=== PATIENT | male | born 1940 | race African-American/Black ===

== ENCOUNTER 2021-04-05 15:40 | Inpatient (IN) | payer OTHER, SELFPAY ==
[~2021-04-05] VITALS: Ht 175.3 cm; Wt 69.9 kg
[2021-04-05 15:45] VITALS: BP_SYST 147
[2021-04-05] MEDS ORDERED: NACL 0.9% 1,000 ML IV ONE (17:15)
[2021-04-05 17:22] LABS: HEMATOCRIT 29.3 % (36-54); HEMOGLOBIN 9.5 g/dL (14.0-18.0); MEAN CORPUSCULAR HEMOGLOBIN 28 pg (27-31); MEAN CORPUSCULAR HGB CONC 33 % (32-36); MEAN CORPUSCULAR VOLUME 86 fL (79.0-98.0); PLATELET COUNT (AUTO) 173 K/uL (130-430); RED BLOOD CELL COUNT(AUTO) 3.42 MIL/uL (4.2-6.2); RED CELL DISTRIBUTION WIDTH 17.3 % (9.0-15.0); WHITE BLOOD COUNT (AUTO) 3.9 K/uL (4.8-10.8)
[2021-04-05 17:28] LABS: ANION GAP 6 (5-15); CALCIUM 7.8 mg/dL (8.4-11.0); CHLORIDE 104 mmol/L (98-107); CREATININE 1.52 mg/dL (0.55-1.30); GLUCOSE 132 mg/dL (70-99); POTASSIUM 4.5 mmol/L (3.5-5.1); SODIUM SERUM 140 mmol/L (136-145); UREA NITROGEN, BLOOD 32 mg/dL (8-21)
[2021-04-05 17:36] LABS: ALANINE AMINOTRANSFERASE 117 U/L (12-78); ALBUMIN 2.9 g/dL (3.4-4.8); ASPARTATE AMINOTRANSFERASE 139 U/L (10-37); TOTAL BILIRUBIN 0.2 mg/dL (0.0-1.0)
[2021-04-05 17:48] LABS: BAND % (MANUAL) 1 % (0-6); LYMPHOCYTES % (MANUAL) 15 % (20-46)
[2021-04-05 17:49] LABS: BASOPHILS % (MANUAL) 0 % (0-2); EOSINOPHILS % (MANUAL) 0 % (0-7); MONOCYTES % (MANUAL) 29 % (0-11)
[2021-04-05 17:59] LABS: BILIRUBIN,URINE NEGATIVE (NEGATIVE); BLOOD, URINE NEGATIVE (NEGATIVE); CLARITY/URINE CLEAR (CLEAR); COLOR,URINE YELLOW (YELLOW); GLUCOSE,URINE NEGATIVE (NEGATIVE); KETONES,URINE TRACE (NEGATIVE); LEUKOCYTE ESTERASE ,URINE NEGATIVE (NEGATIVE); NITRITE, URINE NEGATIVE (NEGATIVE); PROTEIN URINE NEGATIVE (NEGATIVE); UROBILINOGEN,URINE 0.2 (0.2-1.0)
[2021-04-05 23:16] VITALS: BP_SYST 151
[2021-04-06 06:16] LABS: BASOPHILS % (AUTO) 0.3 % (0.0-2.0); EOSINOPHILS % (AUTO) 0.2 % (0.0-4.0); HEMATOCRIT 27.7 % (36-54); HEMOGLOBIN 8.9 g/dL (14.0-18.0); LYMPHOCYTES # (AUTO) 0.6 K/uL (1.0-5.5); LYMPHOCYTES % (AUTO) 23.8 % (20.5-51.5); MEAN CORPUSCULAR HEMOGLOBIN 27 pg (27-31); MEAN CORPUSCULAR HGB CONC 32 % (32-36); MEAN CORPUSCULAR VOLUME 85 fL (79.0-98.0); MONOCYTES # (AUTO) 0.7 K/uL (0.0-1.0); MONOCYTES % (AUTO) 27.9 % (1.7-9.3); NEUTROPHILS # (AUTO) 1.3 K/uL (1.8-7.7); NEUTROPHILS % (AUTO) 47.8 % (40.0-70.0); PLATELET COUNT (AUTO) 174 K/uL (130-430); RED BLOOD CELL COUNT(AUTO) 3.25 MIL/uL (4.2-6.2); RED CELL DISTRIBUTION WIDTH 17.2 % (9.0-15.0); WHITE BLOOD COUNT (AUTO) 2.6 K/uL (4.8-10.8)
[2021-04-06 07:04] LABS: ALANINE AMINOTRANSFERASE 106 U/L (12-78); ALBUMIN 2.6 g/dL (3.4-4.8); ANION GAP 6 (5-15); ASPARTATE AMINOTRANSFERASE 105 U/L (10-37); CALCIUM 7.6 mg/dL (8.4-11.0); CHLORIDE 107 mmol/L (98-107); CREATININE 0.82 mg/dL (0.55-1.30); GLUCOSE 89 mg/dL (70-99); POTASSIUM 3.5 mmol/L (3.5-5.1); SODIUM SERUM 142 mmol/L (136-145); TOTAL BILIRUBIN 0.1 mg/dL (0.0-1.0); UREA NITROGEN, BLOOD 24 mg/dL (8-21)
[2021-04-06 08:15] VITALS: BP_SYST 114
[2021-04-06 11:39] VITALS: BP_SYST 132
[2021-04-06 15:42] VITALS: BP_SYST 111
[2021-04-06] MEDS ORDERED: SPIRONOLACTONE 25 MG TABLET (ALDACTONE) PO ONE (20:30)
[2021-04-07] MEDS: cephALEXin 500 MG CAPSULE PO SCH ×5 (00:20→18:28)
[2021-04-07 00:49] VITALS: BP_SYST 133
[2021-04-07 05:52] VITALS: BP_SYST 129
[2021-04-07 08:17] VITALS: BP_SYST 136
[2021-04-07 12:05] VITALS: BP_SYST 128
[2021-04-07 16:11] VITALS: BP_SYST 132
[2021-04-07] MEDS: NACL 0.9% 1,000 ML IV SCH (18:27)
[2021-04-07 22:38] VITALS: BP_SYST 126
[2021-04-08] MEDS: cephALEXin 500 MG CAPSULE PO SCH ×5 (00:10→23:49)
[2021-04-08 00:52] VITALS: BP_SYST 106
[2021-04-08] MEDS: NACL 0.9% 1,000 ML IV SCH ×3 (02:11→23:49)
[2021-04-08 06:20] VITALS: BP_SYST 124
[2021-04-08 07:49] LABS: BASOPHILS % (AUTO) 0.5 % (0.0-2.0); HEMOGLOBIN 8.8 g/dL (14.0-18.0); LYMPHOCYTES # (AUTO) 0.8 K/uL (1.0-5.5); LYMPHOCYTES % (AUTO) 38.9 % (20.5-51.5); MEAN CORPUSCULAR HEMOGLOBIN 28 pg (27-31); MEAN CORPUSCULAR HGB CONC 33 % (32-36); MEAN CORPUSCULAR VOLUME 85 fL (79.0-98.0); MONOCYTES # (AUTO) 0.4 K/uL (0.0-1.0); MONOCYTES % (AUTO) 18.3 % (1.7-9.3); NEUTROPHILS % (AUTO) 41.3 % (40.0-70.0); PLATELET COUNT (AUTO) 177 K/uL (130-430); RED BLOOD CELL COUNT(AUTO) 3.18 MIL/uL (4.2-6.2); RED CELL DISTRIBUTION WIDTH 17.1 % (9.0-15.0); WHITE BLOOD COUNT (AUTO) 2.1 K/uL (4.8-10.8)
[2021-04-08 08:00] VITALS: BP_SYST 145
[2021-04-08 09:21] LABS: NEUTROPHILS # (AUTO) 0.9 K/uL (1.8-7.7)
[2021-04-08 11:20] LABS: TOTAL IRON BIND. CAPACITY 218 ug/dL (250-450)
[2021-04-08 12:00] VITALS: BP_SYST 133
[2021-04-08 16:00] VITALS: BP_SYST 135
[2021-04-09] VITALS (7 sets, daily range): BP systolic 116–149
[2021-04-09 05:44] LABS: CLARITY/URINE CLEAR (CLEAR); COLOR,URINE YELLOW (YELLOW)
[2021-04-09 05:45] LABS: GLUCOSE,URINE NEGATIVE (NEGATIVE); KETONES,URINE NEGATIVE (NEGATIVE); PROTEIN URINE NEGATIVE (NEGATIVE)
[2021-04-09 05:46] LABS: BLOOD, URINE NEGATIVE (NEGATIVE); LEUKOCYTE ESTERASE ,URINE NEGATIVE (NEGATIVE); NITRITE, URINE NEGATIVE (NEGATIVE); UROBILINOGEN,URINE 0.2 (0.2-1.0)
[2021-04-09 05:47] LABS: BILIRUBIN,URINE NEGATIVE (NEGATIVE)
[2021-04-09] MEDS: cephALEXin 500 MG CAPSULE PO SCH ×3 (06:40→17:21)
[2021-04-09] MEDS: NACL 0.9% 1,000 ML IV SCH ×2 (12:22→17:20)
[2021-04-09 12:51] LABS: MEAN CORPUSCULAR HGB CONC 32 % (32-36); MEAN CORPUSCULAR VOLUME 85 fL (79.0-98.0); MONOCYTES # (AUTO) 0.4 K/uL (0.0-1.0); RED CELL DISTRIBUTION WIDTH 16.9 % (9.0-15.0)
[2021-04-09 12:54] LABS: BASOPHILS % (AUTO) 0.7 % (0.0-2.0); LYMPHOCYTES % (AUTO) 29.5 % (20.5-51.5); MONOCYTES % (AUTO) 15.9 % (1.7-9.3); NEUTROPHILS % (AUTO) 52.9 % (40.0-70.0)
[2021-04-09 12:55] LABS: HEMATOCRIT 32.1 % (36-54); HEMOGLOBIN 10.3 g/dL (14.0-18.0); LYMPHOCYTES # (AUTO) 0.8 K/uL (1.0-5.5); MEAN CORPUSCULAR HEMOGLOBIN 27 pg (27-31); NEUTROPHILS # (AUTO) 1.4 K/uL (1.8-7.7); PLATELET COUNT (AUTO) 200 K/uL (130-430); RED BLOOD CELL COUNT(AUTO) 3.76 MIL/uL (4.2-6.2); WHITE BLOOD COUNT (AUTO) 2.6 K/uL (4.8-10.8)
[2021-04-09] MEDS ORDERED: TBO-FILGRASTIM 480 MCG/0.8 ML SYRINGE SUBCUT ONE (17:00)
[2021-04-10] MEDS: cephALEXin 500 MG CAPSULE PO SCH ×5 (00:03→23:18)
[2021-04-10 00:36] VITALS: BP_SYST 128
[2021-04-10] MEDS: NACL 0.9% 1,000 ML IV SCH (04:00)
[2021-04-10 05:08] LABS: FOLATE (FOLIC ACID) 11.4 ng/mL (>3.0)
[2021-04-10 06:43] LABS: BASOPHILS % (AUTO) 0.2 % (0.0-2.0); EOSINOPHILS % (AUTO) 0.4 % (0.0-4.0); HEMATOCRIT 30.6 % (36-54); LYMPHOCYTES # (AUTO) 0.9 K/uL (1.0-5.5); LYMPHOCYTES % (AUTO) 9.6 % (20.5-51.5); MEAN CORPUSCULAR HEMOGLOBIN 28 pg (27-31); MEAN CORPUSCULAR HGB CONC 33 % (32-36); MEAN CORPUSCULAR VOLUME 85 fL (79.0-98.0); NEUTROPHILS # (AUTO) 7.3 K/uL (1.8-7.7); NEUTROPHILS % (AUTO) 78.8 % (40.0-70.0); PLATELET COUNT (AUTO) 198 K/uL (130-430); RED BLOOD CELL COUNT(AUTO) 3.62 MIL/uL (4.2-6.2); RED CELL DISTRIBUTION WIDTH 16.9 % (9.0-15.0); WHITE BLOOD COUNT (AUTO) 9.2 K/uL (4.8-10.8)
[2021-04-10 06:55] LABS: ALANINE AMINOTRANSFERASE 57 U/L (12-78); ALBUMIN 2.9 g/dL (3.4-4.8); ANION GAP 7 (5-15); ASPARTATE AMINOTRANSFERASE 38 U/L (10-37); CALCIUM 7.6 mg/dL (8.4-11.0); CHLORIDE 103 mmol/L (98-107); CREATININE 0.79 mg/dL (0.55-1.30); GLUCOSE 91 mg/dL (70-99); POTASSIUM 3.8 mmol/L (3.5-5.1); SODIUM SERUM 137 mmol/L (136-145); TOTAL BILIRUBIN 0.2 mg/dL (0.0-1.0); UREA NITROGEN, BLOOD 24 mg/dL (8-21)
[2021-04-10 08:00] VITALS: BP_SYST 135
[2021-04-10 12:00] VITALS: BP_SYST 128
[2021-04-10 16:00] VITALS: BP_SYST 130
[2021-04-10 20:00] VITALS: BP_SYST 106
[2021-04-10 20:50] VITALS: BP_SYST 106
[2021-04-11 00:27] VITALS: BP_SYST 112
[2021-04-11] MEDS: cephALEXin 500 MG CAPSULE PO SCH ×3 (06:16→17:15)
[2021-04-11 07:12] LABS: BASOPHILS % (AUTO) 0.2 % (0.0-2.0); EOSINOPHILS % (AUTO) 0.2 % (0.0-4.0); HEMATOCRIT 30.8 % (36-54); LYMPHOCYTES % (AUTO) 7.5 % (20.5-51.5); MEAN CORPUSCULAR HEMOGLOBIN 27 pg (27-31); MEAN CORPUSCULAR HGB CONC 33 % (32-36); MEAN CORPUSCULAR VOLUME 84 fL (79.0-98.0); MONOCYTES # (AUTO) 1.4 K/uL (0.0-1.0); MONOCYTES % (AUTO) 10.7 % (1.7-9.3); NEUTROPHILS % (AUTO) 81.4 % (40.0-70.0); PLATELET COUNT (AUTO) 198 K/uL (130-430); RED BLOOD CELL COUNT(AUTO) 3.65 MIL/uL (4.2-6.2); WHITE BLOOD COUNT (AUTO) 13.5 K/uL (4.8-10.8)
[2021-04-11 08:20] VITALS: BP_SYST 109
[2021-04-11 11:29] VITALS: BP_SYST 112
[2021-04-11 15:14] VITALS: BP_SYST 115
[2021-04-11 16:49] VITALS: BP_SYST 115
[2021-04-11] MEDS ORDERED: BRIMONIDINE EACH EYE (17:04)
[2021-04-11] MEDS ORDERED: BISA5TAB10 PO (17:04)
[2021-04-11] MEDS ORDERED: TAMS-11 PO (17:04)
[2021-04-11] MEDS ORDERED: NA P133E41 RC (17:04)
[2021-04-11] MEDS ORDERED: [UNRECOGNIZED DRUG - OTHER] EACH EYE (17:04)
[2021-04-11] MEDS ORDERED: [UNRECOGNIZED DRUG - OTHER] EACH EYE (17:04)
[2021-04-11] MEDS ORDERED: POLY15DR31 EACH EYE (17:04)
[2021-04-11] MEDS ORDERED: CAS50 PO (17:04)
[2021-04-11] MEDS ORDERED: SIME80TA15 PO (17:04)
[2021-04-11] MEDS ORDERED: LACT1CAP89 PO (17:04)
== END 2021-04-11 18:55 | disposition home or self-care (01) | DRG 809 ==
LOC: SED 15:40 → STU 21:56
PROVIDERS: ADMIT Internal Medicine; ATTEND Internal Medicine
DX: D61.9 Aplastic anemia, unspecified (principal); N17.9 Acute kidney failure, unspecified; D70.2 Other drug-induced agranulocytosis; T50.8X5A Adverse effect of diagnostic agents, initial encounter; R55 Syncope and collapse; E86.0 Dehydration; D46.9 Myelodysplastic syndrome, unspecified; Z20.822 Contact with and (suspected) exposure to COVID-19; Z85.46 Personal history of malignant neoplasm of prostate; Y92.89 Other specified places as the place of occurrence of the external cause
CPT/HCPCS: 36415; 70450-TC; 71045; 76376; 76700-TC; 80053; 81003; 82607; 82728; 82746; 83540; 83550; 83605; 83880; 84484; 85007; 85025; 85027; 85044; 85651-TC; 87040; 93005; 93880; 96360; 97116-GP; 97530-GP; 99285; G0378; J1447

== ENCOUNTER 2021-10-22 13:05 | Inpatient (IN) | payer OTHER ==
[~2021-10-22] VITALS: Ht 172.7 cm; Wt 59.4 kg
[~2021-10-22 13:05] MED LIST: BISA5TAB10 PO; BRIMONIDINE EACH EYE; CAS50 PO; LACT1CAP89 PO; NA P133E41 RC; POLY15DR31 EACH EYE; SIME80TA15 PO; TAMS-11 PO; [UNRECOGNIZED DRUG - OTHER] EACH EYE; [UNRECOGNIZED DRUG - OTHER] EACH EYE
[2021-10-22 13:09] VITALS: BP_SYST 114
[2021-10-22] MEDS ORDERED: VANCOMYCIN HCL 1,000 MG in NS 250 ML IV ONE (14:45)
[2021-10-22] MEDS ORDERED: PIPERACILLIN/TAZO 3.375 GM in NS 50 ML IV ONE (14:45)
[2021-10-22] MEDS ORDERED: NACL 0.9% 2,000 ML IV ONE (15:00)
[2021-10-22 15:14] LABS: BASOPHILS % (AUTO) 0.2 % (0.0-2.0)
[2021-10-22 15:37] LABS: EOSINOPHILS % (AUTO) 0.1 % (0.0-4.0); HEMATOCRIT 39.2 % (36-54); LYMPHOCYTES # (AUTO) 0.4 K/uL (1.0-5.5); LYMPHOCYTES % (AUTO) 7.5 % (20.5-51.5); MEAN CORPUSCULAR VOLUME 88 fL (79.0-98.0); MONOCYTES # (AUTO) 0.4 K/uL (0.0-1.0); MONOCYTES % (AUTO) 8.7 % (1.7-9.3); NEUTROPHILS % (AUTO) 83.5 % (40.0-70.0); PLATELET COUNT (AUTO) 132 K/uL (130-430); RED BLOOD CELL COUNT(AUTO) 4.46 MIL/uL (4.2-6.2); WHITE BLOOD COUNT (AUTO) 4.8 K/uL (4.8-10.8)
[2021-10-22 16:01] LABS: ANION GAP 13 (5-15); CALCIUM 9.7 mg/dL (8.4-11.0); CREATININE 1.42 mg/dL (0.55-1.30); GLUCOSE 121 mg/dL (70-99); UREA NITROGEN, BLOOD 28 mg/dL (8-21)
[2021-10-22] MEDS ORDERED: VANCOMYCIN HCL 1000 MG/VIAL IV ONE (16:01)
[2021-10-22] MEDS ORDERED: PIPERACILLIN/TAZOBACTAM 3.375 GM/VIAL (ZOSYN) IV ONE (16:02)
[2021-10-22 16:17] LABS: ALANINE AMINOTRANSFERASE 42 U/L (12-78); ALBUMIN 2.5 g/dL (3.4-4.8); ASPARTATE AMINOTRANSFERASE 104 U/L (10-37); THYROID STIMULATING HORMONE 1.57 uIu/mL (0.36-3.74); TOTAL BILIRUBIN 0.5 mg/dL (0.0-1.0)
[2021-10-22 16:31] LABS: CHLORIDE 122 mmol/L (98-107)
[2021-10-22 16:49] LABS: BILIRUBIN,URINE 1+ (NEGATIVE); BLOOD, URINE 3+ (NEGATIVE); CLARITY/URINE CLOUDY (CLEAR); GLUCOSE,URINE NEGATIVE (NEGATIVE); KETONES,URINE 1+ (NEGATIVE); LEUKOCYTE ESTERASE ,URINE NEGATIVE (NEGATIVE); NITRITE, URINE NEGATIVE (NEGATIVE); PH,URINE 5.5 (5.0-8.0); PROTEIN URINE 2+ (NEGATIVE)
[2021-10-22 17:02] LABS: COLOR,URINE AMBER (YELLOW)
[2021-10-22 17:10] LABS: INR 1.2 (0.80-1.20); PROTHROMBIN TIME 12.3 SECS (9.5-12.5)
[2021-10-22 17:45] LABS: CKMB RELATIVE INDEX 0.1 (0.0-2.9); CREATINE KINASE MB 1.7 ng/mL (0-3.6)
[2021-10-22] MEDS ORDERED: cefTRIAXone 1 GM IVPB PREMIX 50 ML IV SCH (17:45)
[2021-10-22] MEDS ORDERED: DEXTROSE 50% JECT 50 ML DISP.SYRIN IVP PRN (17:45)
[2021-10-22] MEDS ORDERED: ONDANSETRON HCL 4 MG/2 ML VIAL IVP PRN (17:45)
[2021-10-22] MEDS ORDERED: MORPHINE 2 MG/ML INJ. SYRINGE IVP PRN ×2 (17:45)
[2021-10-22] MEDS ORDERED: MAGNESIUM SULFATE 50 ML IV PRN (17:45)
[2021-10-22] MEDS ORDERED: LORazepam 2 MG/ML VIAL IVP PRN (17:45)
[2021-10-22] MEDS ORDERED: ZOLPIDEM TARTRATE 5 MG TABLET PO PRN (17:45)
[2021-10-22] MEDS ORDERED: MUPIROCIN 2% TOPICAL OINTMENT 22 GM NS PRN (17:45)
[2021-10-22] MEDS ORDERED: POTASSIUM CHLORIDE 20 MEQ TAB.PRT.SR PO PRN (17:45)
[2021-10-22 17:51] LABS: HEMOGLOBIN 11.9 g/dL (14.0-18.0); MEAN CORPUSCULAR HEMOGLOBIN 27 pg (27-31); MEAN CORPUSCULAR HGB CONC 30 % (32-36)
[2021-10-22] MEDS ORDERED: D5W 500 ML IV ONE (18:00)
[2021-10-22 18:10] LABS: BACTERIA,URINE FEW /HPF (None Seen); WBC,URINE 0-3 /HPF (0-3)
[2021-10-22 18:11] LABS: COARSE GRANULAR CASTS,URINE 0-10 /LPF (None Seen); MUCUS,URINE 1+ /LPF (None Seen); URINE AMORPHOUS URATE 3+ /HPF (None Seen)
[2021-10-22 20:27] LABS: ANION GAP 6 (5-15); CALCIUM 9.5 mg/dL (8.4-11.0); CREATININE 1.34 mg/dL (0.55-1.30); GLUCOSE 119 mg/dL (70-99); POTASSIUM 4.2 mmol/L (3.5-5.1); UREA NITROGEN, BLOOD 27 mg/dL (8-21)
[2021-10-22 20:45] LABS: CHLORIDE 126 mmol/L (98-107)
[2021-10-22] MEDS: BISACODYL 5 MG TABLET.DR (DULCOLAX) PO SCH (21:00)
[2021-10-22] MEDS ORDERED: PIPERACILLIN/TAZOBACTAM 2.25 GM in NS 50 ML IV SCH (22:00)
[2021-10-22 22:24] VITALS: BP_SYST 118
[2021-10-22 23:06] VITALS: BP_SYST 112
[2021-10-22] MEDS: INSULIN LISPRO SLIDING SCALE 100 UNITS/ML, 3 ML VIAL (humaLOG) SUBCUT PRN (23:17)
[2021-10-23 01:25] VITALS: BP_SYST 90
[2021-10-23] MEDS ORDERED: D5W 1,000 ML IV SCH (07:45)
[2021-10-23 08:00] VITALS: BP_SYST 85
[2021-10-23 08:00] LABS: BASOPHILS % (AUTO) 0.1 % (0.0-2.0); HEMATOCRIT 37.9 % (36-54); LYMPHOCYTES # (AUTO) 0.3 K/uL (1.0-5.5); LYMPHOCYTES % (AUTO) 4.8 % (20.5-51.5); MEAN CORPUSCULAR VOLUME 87 fL (79.0-98.0); MONOCYTES # (AUTO) 0.4 K/uL (0.0-1.0); MONOCYTES % (AUTO) 6.9 % (1.7-9.3); NEUTROPHILS # (AUTO) 4.7 K/uL (1.8-7.7); NEUTROPHILS % (AUTO) 88.2 % (40.0-70.0); PLATELET COUNT (AUTO) 124 K/uL (130-430); RED BLOOD CELL COUNT(AUTO) 4.35 MIL/uL (4.2-6.2); RED CELL DISTRIBUTION WIDTH 18.6 % (9.0-15.0); WHITE BLOOD COUNT (AUTO) 5.4 K/uL (4.8-10.8)
[2021-10-23 08:32] LABS: ANION GAP 6 (5-15); CALCIUM 9.2 mg/dL (8.4-11.0); CREATININE 2.13 mg/dL (0.55-1.30); GLUCOSE 130 mg/dL (70-99); POTASSIUM 4.5 mmol/L (3.5-5.1); UREA NITROGEN, BLOOD 34 mg/dL (8-21)
[2021-10-23] MEDS ORDERED: PEG 400/HYPROMELLOSE/GLYCERIN 15 ML DROPS EACH EYE PRN (09:00)
[2021-10-23] MEDS: ASPIRIN 81 MG TAB.CHEW PO SCH (09:28)
[2021-10-23] MEDS: BISACODYL 5 MG TABLET.DR (DULCOLAX) PO SCH ×2 (09:29→21:00)
[2021-10-23] MEDS: TAMSULOSIN HCL 0.4 MG CAP PO SCH (09:29)
[2021-10-23 09:39] LABS: CHLORIDE 124 mmol/L (98-107)
[2021-10-23] MEDS ORDERED: D5W 500 ML IV ONE (10:15)
[2021-10-23] MEDS: D5W 1,000 ML IV SCH ×3 (10:19→23:04)
[2021-10-23] MEDS: INSULIN LISPRO SLIDING SCALE 100 UNITS/ML, 3 ML VIAL (humaLOG) SUBCUT PRN ×3 (11:38→21:24)
[2021-10-23 12:00] VITALS: BP_SYST 105
[2021-10-23 12:48] LABS: HEMOGLOBIN 11.9 g/dL (14.0-18.0)
[2021-10-23 12:49] LABS: MEAN CORPUSCULAR HEMOGLOBIN 27 pg (27-31); MEAN CORPUSCULAR HGB CONC 31 % (32-36)
[2021-10-23 16:00] VITALS: BP_SYST 106
[2021-10-23 20:37] VITALS: BP_SYST 100
[2021-10-24] VITALS (8 sets, daily range): BP systolic 91–131
[2021-10-24] MEDS: D5W 1,000 ML IV SCH ×2 (05:51→10:54)
[2021-10-24 07:19] LABS: BASOPHILS % (AUTO) 0.1 % (0.0-2.0); HEMATOCRIT 36.2 % (36-54); LYMPHOCYTES # (AUTO) 0.5 K/uL (1.0-5.5); LYMPHOCYTES % (AUTO) 5.9 % (20.5-51.5); MEAN CORPUSCULAR VOLUME 86 fL (79.0-98.0); MONOCYTES # (AUTO) 0.3 K/uL (0.0-1.0); MONOCYTES % (AUTO) 3.4 % (1.7-9.3); NEUTROPHILS # (AUTO) 8.3 K/uL (1.8-7.7); NEUTROPHILS % (AUTO) 90.6 % (40.0-70.0); PLATELET COUNT (AUTO) 78 K/uL (130-430); RED BLOOD CELL COUNT(AUTO) 4.21 MIL/uL (4.2-6.2); RED CELL DISTRIBUTION WIDTH 18.4 % (9.0-15.0); WHITE BLOOD COUNT (AUTO) 9.2 K/uL (4.8-10.8)
[2021-10-24 07:36] LABS: ANION GAP 6 (5-15); CALCIUM 9.2 mg/dL (8.4-11.0); CHLORIDE 113 mmol/L (98-107); GLUCOSE 176 mg/dL (70-99); UREA NITROGEN, BLOOD 55 mg/dL (8-21)
[2021-10-24 07:54] LABS: ALANINE AMINOTRANSFERASE 34 U/L (12-78); ALBUMIN 1.4 g/dL (3.4-4.8); ASPARTATE AMINOTRANSFERASE 68 U/L (10-37); THYROID STIMULATING HORMONE 2.97 uIu/mL (0.36-3.74); TOTAL BILIRUBIN 0.3 mg/dL (0.0-1.0)
[2021-10-24] MEDS: ASPIRIN 81 MG TAB.CHEW PO SCH (08:42)
[2021-10-24] MEDS: BISACODYL 5 MG TABLET.DR (DULCOLAX) PO SCH ×2 (08:42→20:51)
[2021-10-24] MEDS: TAMSULOSIN HCL 0.4 MG CAP PO SCH (08:43)
[2021-10-24 09:41] LABS: CHOLESTEROL 105 mg/dL (<200); HDL CHOLESTEROL 36 mg/dL (>45); LDL CHOLESTEROL 42 mg/dL (<100); TRIGLYCERIDES 92 mg/dL (30-150)
[2021-10-24] MEDS ORDERED: NACL 0.9% 1,000 ML IV ONE (11:00)
[2021-10-24] MEDS: D5/0.45 NS 1,000 ML IV SCH ×3 (11:21→20:52)
[2021-10-24] MEDS ORDERED: SODIUM ZIRCONIUM CYCLOSILICATE 10 GM POWD.PACK PO ONE (17:00)
[2021-10-25] VITALS (25 sets, daily range): BP systolic 104–130
[2021-10-25 06:55] LABS: BASOPHILS # (AUTO) 0.1 K/uL (0.0-0.2); BASOPHILS % (AUTO) 0.9 % (0.0-2.0); HEMATOCRIT 33.2 % (36-54); LYMPHOCYTES # (AUTO) 0.3 K/uL (1.0-5.5); LYMPHOCYTES % (AUTO) 4.1 % (20.5-51.5); MEAN CORPUSCULAR VOLUME 83 fL (79.0-98.0); MONOCYTES # (AUTO) 0.3 K/uL (0.0-1.0); MONOCYTES % (AUTO) 3.8 % (1.7-9.3); NEUTROPHILS # (AUTO) 7.7 K/uL (1.8-7.7); NEUTROPHILS % (AUTO) 91.2 % (40.0-70.0); PLATELET COUNT (AUTO) 86 K/uL (130-430); RED BLOOD CELL COUNT(AUTO) 3.99 MIL/uL (4.2-6.2); RED CELL DISTRIBUTION WIDTH 17.8 % (9.0-15.0); WHITE BLOOD COUNT (AUTO) 8.4 K/uL (4.8-10.8)
[2021-10-25 07:23] LABS: ALANINE AMINOTRANSFERASE 41 U/L (12-78); ALBUMIN 1.4 g/dL (3.4-4.8); ANION GAP 7 (5-15); ASPARTATE AMINOTRANSFERASE 78 U/L (10-37); CALCIUM 9.4 mg/dL (8.4-11.0); CHLORIDE 109 mmol/L (98-107); CREATININE 5.49 mg/dL (0.55-1.30); GLUCOSE 154 mg/dL (70-99); TOTAL BILIRUBIN 0.4 mg/dL (0.0-1.0); UREA NITROGEN, BLOOD 70 mg/dL (8-21)
[2021-10-25] MEDS: ASPIRIN 81 MG TAB.CHEW PO SCH (09:00)
[2021-10-25] MEDS: BISACODYL 5 MG TABLET.DR (DULCOLAX) PO SCH ×2 (09:00→21:40)
[2021-10-25] MEDS: TAMSULOSIN HCL 0.4 MG CAP PO SCH (09:00)
[2021-10-25] MEDS ORDERED: NS 500 ML IV ONE ×2 (10:00→16:00)
[2021-10-25] MEDS: D5/0.45 NS 1,000 ML IV SCH (13:23)
[2021-10-25] MEDS ORDERED: HEPARIN SODIUM,PORCINE 5,000 UNITS/ML VIAL ONE (18:50)
[2021-10-26] VITALS (26 sets, daily range): BP systolic 93–137
[2021-10-26] MEDS: D5/0.45 NS 1,000 ML IV SCH (05:57)
[2021-10-26 07:17] LABS: BASOPHILS # (AUTO) 0.1 K/uL (0.0-0.2); EOSINOPHILS % (AUTO) 0.1 % (0.0-4.0); HEMATOCRIT 25.8 % (36-54); LYMPHOCYTES # (AUTO) 0.2 K/uL (1.0-5.5); LYMPHOCYTES % (AUTO) 2.6 % (20.5-51.5); MEAN CORPUSCULAR VOLUME 81 fL (79.0-98.0); MONOCYTES # (AUTO) 0.4 K/uL (0.0-1.0); MONOCYTES % (AUTO) 5.5 % (1.7-9.3); NEUTROPHILS # (AUTO) 7.3 K/uL (1.8-7.7); NEUTROPHILS % (AUTO) 90.8 % (40.0-70.0); PLATELET COUNT (AUTO) 79 K/uL (130-430); RED BLOOD CELL COUNT(AUTO) 3.17 MIL/uL (4.2-6.2); RED CELL DISTRIBUTION WIDTH 17.3 % (9.0-15.0); WHITE BLOOD COUNT (AUTO) 8.1 K/uL (4.8-10.8)
[2021-10-26 07:34] LABS: ANION GAP 7 (5-15); CALCIUM 9.5 mg/dL (8.4-11.0); CHLORIDE 109 mmol/L (98-107); CREATININE 6.66 mg/dL (0.55-1.30); GLUCOSE 140 mg/dL (70-99); POTASSIUM 4.9 mmol/L (3.5-5.1); UREA NITROGEN, BLOOD 89 mg/dL (8-21)
[2021-10-26] MEDS ORDERED: NS 500 ML IV ONE (09:00)
[2021-10-26] MEDS: TAMSULOSIN HCL 0.4 MG CAP PO SCH (09:30)
[2021-10-26] MEDS: BISACODYL 5 MG TABLET.DR (DULCOLAX) PO SCH ×2 (09:30→20:46)
[2021-10-26] MEDS: ASPIRIN 81 MG TAB.CHEW PO SCH (09:30)
[2021-10-26] MEDS ORDERED: metroNIDAZOLE 500 mg/NS 100 ML IV ONE (10:00)
[2021-10-26] MEDS ORDERED: HEPARIN SODIUM,PORCINE 5,000 UNITS/ML VIAL MC ONE ×2 (11:30)
[2021-10-26] MEDS: metroNIDAZOLE 500 mg/NS 100 ML IV SCH (16:17)
[2021-10-27] VITALS (27 sets, daily range): BP systolic 87–147
[2021-10-27] MEDS: metroNIDAZOLE 500 mg/NS 100 ML IV SCH ×4 (01:46→18:18)
[2021-10-27] MEDS: D5/0.45 NS 1,000 ML IV SCH ×2 (02:01→14:50)
[2021-10-27 07:05] LABS: BASOPHILS % (AUTO) 0.1 % (0.0-2.0); HEMATOCRIT 24.9 % (36-54); LYMPHOCYTES # (AUTO) 0.2 K/uL (1.0-5.5); LYMPHOCYTES % (AUTO) 4.2 % (20.5-51.5); MEAN CORPUSCULAR VOLUME 80 fL (79.0-98.0); MONOCYTES # (AUTO) 0.4 K/uL (0.0-1.0); MONOCYTES % (AUTO) 7.9 % (1.7-9.3); NEUTROPHILS # (AUTO) 4.8 K/uL (1.8-7.7); NEUTROPHILS % (AUTO) 87.8 % (40.0-70.0); PLATELET COUNT (AUTO) 88 K/uL (130-430); RED BLOOD CELL COUNT(AUTO) 3.11 MIL/uL (4.2-6.2); RED CELL DISTRIBUTION WIDTH 17.5 % (9.0-15.0); WHITE BLOOD COUNT (AUTO) 5.5 K/uL (4.8-10.8)
[2021-10-27 07:15] LABS: ANION GAP 8 (5-15); CALCIUM 9.2 mg/dL (8.4-11.0); CHLORIDE 105 mmol/L (98-107); GLUCOSE 162 mg/dL (70-99); POTASSIUM 4.6 mmol/L (3.5-5.1); UREA NITROGEN, BLOOD 70 mg/dL (8-21)
[2021-10-27] MEDS: BISACODYL 5 MG TABLET.DR (DULCOLAX) PO SCH ×2 (08:32→20:45)
[2021-10-27] MEDS: ASPIRIN 81 MG TAB.CHEW PO SCH (08:32)
[2021-10-27] MEDS: TAMSULOSIN HCL 0.4 MG CAP PO SCH (08:33)
[2021-10-27 12:07] LABS: HEPATITIS B SURFACE AG Negative (Negative); HEPATITIS C VIRUS AB <0.1 s/co ratio (0.0-0.9)
[2021-10-27] MEDS ORDERED: ETOMIDATE 20 MG/ 10 ML VIAL (AMIDATE) IVP ONE (14:20)
[2021-10-27] MEDS ORDERED: ROCURONIUM BROMIDE 10 MG/ML (ZEMURON) IV ONE (14:20)
[2021-10-27] MEDS ORDERED: PROPOFOL DRIP 100 ML IV PRN (14:30)
[2021-10-27] MEDS ORDERED: METOPROLOL TARTRATE 5 MG/5 ML VIAL IVP ONE (15:00)
[2021-10-27] MEDS: INSULIN LISPRO SLIDING SCALE 100 UNITS/ML, 3 ML VIAL (humaLOG) SUBCUT PRN (20:54)
[2021-10-28] VITALS (30 sets, daily range): BP systolic 15–124
[2021-10-28] MEDS: metroNIDAZOLE 500 mg/NS 100 ML IV SCH ×3 (02:06→17:13)
[2021-10-28] MEDS: D5/0.45 NS 1,000 ML IV SCH ×2 (06:23→23:53)
[2021-10-28 06:41] LABS: BASOPHILS % (AUTO) 0.2 % (0.0-2.0); EOSINOPHILS % (AUTO) 0.5 % (0.0-4.0); HEMATOCRIT 23.4 % (36-54); LYMPHOCYTES # (AUTO) 0.3 K/uL (1.0-5.5); LYMPHOCYTES % (AUTO) 3.6 % (20.5-51.5); MEAN CORPUSCULAR VOLUME 80 fL (79.0-98.0); MONOCYTES # (AUTO) 0.5 K/uL (0.0-1.0); MONOCYTES % (AUTO) 5.8 % (1.7-9.3); NEUTROPHILS # (AUTO) 7.2 K/uL (1.8-7.7); NEUTROPHILS % (AUTO) 89.9 % (40.0-70.0); PLATELET COUNT (AUTO) 103 K/uL (130-430); RED BLOOD CELL COUNT(AUTO) 2.94 MIL/uL (4.2-6.2); RED CELL DISTRIBUTION WIDTH 17.9 % (9.0-15.0)
[2021-10-28 06:48] LABS: ALANINE AMINOTRANSFERASE 34 U/L (12-78); ASPARTATE AMINOTRANSFERASE 52 U/L (10-37); CALCIUM 9.7 mg/dL (8.4-11.0); CHLORIDE 104 mmol/L (98-107); CREATININE 7.31 mg/dL (0.55-1.30); GLUCOSE 156 mg/dL (70-99); TOTAL BILIRUBIN 0.6 mg/dL (0.0-1.0); UREA NITROGEN, BLOOD 95 mg/dL (8-21)
[2021-10-28 07:05] LABS: ANION GAP 11 (5-15)
[2021-10-28] MEDS: TAMSULOSIN HCL 0.4 MG CAP PO SCH (08:30)
[2021-10-28] MEDS: ASPIRIN 81 MG TAB.CHEW PO SCH (08:30)
[2021-10-28] MEDS: BISACODYL 5 MG TABLET.DR (DULCOLAX) PO SCH ×2 (08:30→21:04)
[2021-10-28] MEDS ORDERED: HEPARIN SODIUM,PORCINE 5,000 UNITS/ML VIAL MC ONE (09:00)
[2021-10-28] MEDS ORDERED: ALBUMIN HUMAN 25% 100 ML IV ONE ×3 (09:00→13:00)
[2021-10-28] MEDS: CEFEPIME 2 GM in D5W 100 ML IV SCH (11:40)
[2021-10-29] VITALS (30 sets, daily range): BP systolic 74–136
[2021-10-29] MEDS: metroNIDAZOLE 500 mg/NS 100 ML IV SCH ×3 (02:00→17:19)
[2021-10-29 06:31] LABS: ANION GAP 10 (5-15); CHLORIDE 100 mmol/L (98-107); CREATININE 5.61 mg/dL (0.55-1.30); GLUCOSE 145 mg/dL (70-99); POTASSIUM 4.2 mmol/L (3.5-5.1); UREA NITROGEN, BLOOD 76 mg/dL (8-21)
[2021-10-29 08:04] LABS: BASOPHILS % (AUTO) 0.1 % (0.0-2.0); HEMATOCRIT 22.2 % (36-54); LYMPHOCYTES # (AUTO) 0.2 K/uL (1.0-5.5); LYMPHOCYTES % (AUTO) 2.3 % (20.5-51.5); MEAN CORPUSCULAR VOLUME 78 fL (79.0-98.0); MONOCYTES # (AUTO) 0.5 K/uL (0.0-1.0); MONOCYTES % (AUTO) 4.7 % (1.7-9.3); NEUTROPHILS # (AUTO) 9.6 K/uL (1.8-7.7); NEUTROPHILS % (AUTO) 92.9 % (40.0-70.0); PLATELET COUNT (AUTO) 122 K/uL (130-430); RED BLOOD CELL COUNT(AUTO) 2.83 MIL/uL (4.2-6.2); RED CELL DISTRIBUTION WIDTH 17.8 % (9.0-15.0); WHITE BLOOD COUNT (AUTO) 10.3 K/uL (4.8-10.8)
[2021-10-29] MEDS: BISACODYL 5 MG TABLET.DR (DULCOLAX) PO SCH ×2 (09:24→21:28)
[2021-10-29] MEDS: TAMSULOSIN HCL 0.4 MG CAP PO SCH (09:24)
[2021-10-29] MEDS: ASPIRIN 81 MG TAB.CHEW PO SCH (09:24)
[2021-10-29] MEDS: CEFEPIME 2 GM in D5W 100 ML IV SCH (09:28)
[2021-10-29] MEDS ORDERED: NOREPINEPHRINE BITARTRATE 16 MG in NS 234 ML IV PRN (12:30)
[2021-10-29] MEDS ORDERED: ALBUMIN HUMAN 25% 200 ML IV ONE (12:45)
[2021-10-29] MEDS: D5/0.45 NS 1,000 ML IV SCH ×2 (14:10→23:27)
[2021-10-29] MEDS ORDERED: HEPARIN SODIUM,PORCINE 5,000 UNITS/ML VIAL MC ONE (15:15)
[2021-10-29] MEDS ORDERED: HEPARIN SODIUM,PORCINE 5,000 UNITS/ML VIAL ONE (15:15)
[2021-10-29] MEDS: INSULIN LISPRO SLIDING SCALE 100 UNITS/ML, 3 ML VIAL (humaLOG) SUBCUT PRN ×2 (17:38→21:36)
[2021-10-30] VITALS (31 sets, daily range): BP systolic 108–147
[2021-10-30] MEDS: metroNIDAZOLE 500 mg/NS 100 ML IV SCH ×3 (02:39→17:19)
[2021-10-30] MEDS: INSULIN LISPRO SLIDING SCALE 100 UNITS/ML, 3 ML VIAL (humaLOG) SUBCUT PRN ×3 (06:09→21:30)
[2021-10-30 07:14] LABS: BASOPHILS % (AUTO) 0.1 % (0.0-2.0); LYMPHOCYTES # (AUTO) 0.4 K/uL (1.0-5.5); LYMPHOCYTES % (AUTO) 2.8 % (20.5-51.5); MEAN CORPUSCULAR VOLUME 79 fL (79.0-98.0); MONOCYTES # (AUTO) 0.7 K/uL (0.0-1.0); NEUTROPHILS # (AUTO) 12.4 K/uL (1.8-7.7); NEUTROPHILS % (AUTO) 92.1 % (40.0-70.0); PLATELET COUNT (AUTO) 143 K/uL (130-430); RED BLOOD CELL COUNT(AUTO) 2.67 MIL/uL (4.2-6.2); RED CELL DISTRIBUTION WIDTH 17.3 % (9.0-15.0); WHITE BLOOD COUNT (AUTO) 13.4 K/uL (4.8-10.8)
[2021-10-30 07:18] LABS: ANION GAP 9 (5-15); CALCIUM 10.5 mg/dL (8.4-11.0); CHLORIDE 100 mmol/L (98-107); CREATININE 4.55 mg/dL (0.55-1.30); GLUCOSE 176 mg/dL (70-99); POTASSIUM 3.8 mmol/L (3.5-5.1); UREA NITROGEN, BLOOD 64 mg/dL (8-21)
[2021-10-30] MEDS: BISACODYL 5 MG TABLET.DR (DULCOLAX) PO SCH ×2 (08:24→20:50)
[2021-10-30] MEDS: TAMSULOSIN HCL 0.4 MG CAP PO SCH (08:24)
[2021-10-30] MEDS: D5/0.45 NS 1,000 ML IV SCH (08:24)
[2021-10-30] MEDS: ASPIRIN 81 MG TAB.CHEW PO SCH (08:24)
[2021-10-30] MEDS: CEFEPIME 2 GM in D5W 100 ML IV SCH (09:51)
[2021-10-31] VITALS (34 sets, daily range): BP systolic 101–153
[2021-10-31] MEDS: metroNIDAZOLE 500 mg/NS 100 ML IV SCH ×3 (01:35→17:39)
[2021-10-31] MEDS: D5/0.45 NS 1,000 ML IV SCH ×2 (04:20→16:00)
[2021-10-31] MEDS: BISACODYL 5 MG TABLET.DR (DULCOLAX) PO SCH ×2 (06:44→20:49)
[2021-10-31] MEDS: INSULIN LISPRO SLIDING SCALE 100 UNITS/ML, 3 ML VIAL (humaLOG) SUBCUT PRN ×2 (06:51→18:10)
[2021-10-31 07:19] LABS: BASOPHILS % (AUTO) 0.1 % (0.0-2.0); EOSINOPHILS % (AUTO) 0.1 % (0.0-4.0); HEMATOCRIT 26.1 % (36-54); LYMPHOCYTES # (AUTO) 0.3 K/uL (1.0-5.5); LYMPHOCYTES % (AUTO) 2.2 % (20.5-51.5); MEAN CORPUSCULAR VOLUME 80 fL (79.0-98.0); MONOCYTES # (AUTO) 0.8 K/uL (0.0-1.0); NEUTROPHILS # (AUTO) 14.2 K/uL (1.8-7.7); NEUTROPHILS % (AUTO) 92.6 % (40.0-70.0); PLATELET COUNT (AUTO) 160 K/uL (130-430); RED BLOOD CELL COUNT(AUTO) 3.26 MIL/uL (4.2-6.2); WHITE BLOOD COUNT (AUTO) 15.3 K/uL (4.8-10.8)
[2021-10-31 07:56] LABS: ANION GAP 10 (5-15); CALCIUM 11.1 mg/dL (8.4-11.0); CHLORIDE 98 mmol/L (98-107); CREATININE 5.65 mg/dL (0.55-1.30); GLUCOSE 217 mg/dL (70-99); POTASSIUM 3.9 mmol/L (3.5-5.1); UREA NITROGEN, BLOOD 95 mg/dL (8-21)
[2021-10-31] MEDS: TAMSULOSIN HCL 0.4 MG CAP PO SCH (09:00)
[2021-10-31] MEDS: CEFEPIME 2 GM in D5W 100 ML IV SCH (09:11)
[2021-10-31] MEDS ORDERED: ALBUMIN HUMAN 25% 200 ML IV ONE ×2 (11:11→11:15)
[2021-10-31] MEDS ORDERED: HEPARIN SODIUM,PORCINE 5,000 UNITS/ML VIAL MC ONE ×2 (12:30→12:45)
[2021-10-31] MEDS: ACETAMINOPHEN 325 MG TABLET PO PRN (17:27)
[2021-11-01] VITALS (35 sets, daily range): BP systolic 107–149
[2021-11-01] MEDS: metroNIDAZOLE 500 mg/NS 100 ML IV SCH ×3 (01:37→19:51)
[2021-11-01 06:20] LABS: EOSINOPHILS % (AUTO) 0.1 % (0.0-4.0); HEMATOCRIT 24.4 % (36-54); LYMPHOCYTES # (AUTO) 0.3 K/uL (1.0-5.5); LYMPHOCYTES % (AUTO) 2.2 % (20.5-51.5); MEAN CORPUSCULAR VOLUME 80 fL (79.0-98.0); MONOCYTES # (AUTO) 0.6 K/uL (0.0-1.0); MONOCYTES % (AUTO) 3.9 % (1.7-9.3); NEUTROPHILS # (AUTO) 14.5 K/uL (1.8-7.7); NEUTROPHILS % (AUTO) 93.8 % (40.0-70.0); PLATELET COUNT (AUTO) 177 K/uL (130-430); RED BLOOD CELL COUNT(AUTO) 3.08 MIL/uL (4.2-6.2); RED CELL DISTRIBUTION WIDTH 17.4 % (9.0-15.0); WHITE BLOOD COUNT (AUTO) 15.4 K/uL (4.8-10.8)
[2021-11-01] MEDS: INSULIN LISPRO SLIDING SCALE 100 UNITS/ML, 3 ML VIAL (humaLOG) SUBCUT PRN ×3 (06:20→22:27)
[2021-11-01 06:45] LABS: ALANINE AMINOTRANSFERASE 21 U/L (12-78); ALBUMIN 1.7 g/dL (3.4-4.8); ANION GAP 9 (5-15); ASPARTATE AMINOTRANSFERASE 50 U/L (10-37); CHLORIDE 99 mmol/L (98-107); CREATININE 4.43 mg/dL (0.55-1.30); GLUCOSE 224 mg/dL (70-99); POTASSIUM 3.9 mmol/L (3.5-5.1); TOTAL BILIRUBIN 1.2 mg/dL (0.0-1.0); UREA NITROGEN, BLOOD 74 mg/dL (8-21)
[2021-11-01] MEDS: DOCUSATE SODIUM 100 MG CAPSULE PO PRN (10:22)
[2021-11-01] MEDS: BISACODYL 5 MG TABLET.DR (DULCOLAX) PO SCH ×2 (10:22→22:09)
[2021-11-01] MEDS: TAMSULOSIN HCL 0.4 MG CAP PO SCH (10:22)
[2021-11-01] MEDS: CEFEPIME 2 GM in D5W 100 ML IV SCH (10:24)
[2021-11-02] VITALS (27 sets, daily range): BP systolic 119–144
[2021-11-02] MEDS: metroNIDAZOLE 500 mg/NS 100 ML IV SCH (02:58)
[2021-11-02] MEDS: INSULIN LISPRO SLIDING SCALE 100 UNITS/ML, 3 ML VIAL (humaLOG) SUBCUT PRN ×4 (06:29→23:56)
[2021-11-02] MEDS: D5/0.45 NS 1,000 ML IV SCH (06:52)
[2021-11-02 07:36] LABS: BASOPHILS % (AUTO) 0.2 % (0.0-2.0); HEMATOCRIT 23.9 % (36-54); LYMPHOCYTES # (AUTO) 6.1 K/uL (1.0-5.5); LYMPHOCYTES % (AUTO) 42.2 % (20.5-51.5); MEAN CORPUSCULAR VOLUME 79 fL (79.0-98.0); MONOCYTES # (AUTO) 0.4 K/uL (0.0-1.0); NEUTROPHILS # (AUTO) 7.9 K/uL (1.8-7.7); NEUTROPHILS % (AUTO) 54.6 % (40.0-70.0); PLATELET COUNT (AUTO) 165 K/uL (130-430); RED BLOOD CELL COUNT(AUTO) 3.03 MIL/uL (4.2-6.2); RED CELL DISTRIBUTION WIDTH 17.7 % (9.0-15.0); WHITE BLOOD COUNT (AUTO) 14.5 K/uL (4.8-10.8)
[2021-11-02 08:34] LABS: ALANINE AMINOTRANSFERASE 20 U/L (12-78); ALBUMIN 1.5 g/dL (3.4-4.8); ANION GAP 11 (5-15); ASPARTATE AMINOTRANSFERASE 61 U/L (10-37); CALCIUM 11.9 mg/dL (8.4-11.0); CHLORIDE 96 mmol/L (98-107); CREATININE 5.34 mg/dL (0.55-1.30); GLUCOSE 210 mg/dL (70-99); POTASSIUM 4.3 mmol/L (3.5-5.1); TOTAL BILIRUBIN 1.5 mg/dL (0.0-1.0)
[2021-11-02] MEDS: TAMSULOSIN HCL 0.4 MG CAP PO SCH (09:29)
[2021-11-02] MEDS: BISACODYL 5 MG TABLET.DR (DULCOLAX) PO SCH ×2 (09:29→20:54)
[2021-11-02] MEDS: DOCUSATE SODIUM 100 MG CAPSULE PO PRN (09:30)
[2021-11-02 09:36] LABS: UREA NITROGEN, BLOOD 104 mg/dL (8-21)
[2021-11-02] MEDS: CEFEPIME 2 GM in D5W 100 ML IV SCH (09:36)
[2021-11-02] MEDS ORDERED: DOCUSATE SODIUM 100 MG/10 ML UDC PO PRN (10:09)
[2021-11-02] MEDS: D5NS 1,000 ML IV SCH (16:29)
[2021-11-03] VITALS (27 sets, daily range): BP systolic 96–136
[2021-11-03] MEDS: TAMSULOSIN HCL 0.4 MG CAP PO SCH (09:24)
[2021-11-03] MEDS: BISACODYL 5 MG TABLET.DR (DULCOLAX) PO SCH ×2 (09:33→19:56)
[2021-11-03] MEDS: CEFEPIME 2 GM in D5W 100 ML IV SCH (09:33)
[2021-11-03] MEDS: D5NS 1,000 ML IV SCH (09:55)
[2021-11-03] MEDS: INSULIN LISPRO SLIDING SCALE 100 UNITS/ML, 3 ML VIAL (humaLOG) SUBCUT PRN ×2 (10:01→18:07)
[2021-11-03 10:08] LABS: ANION GAP 10 (5-15); CHLORIDE 95 mmol/L (98-107); CREATININE 6.12 mg/dL (0.55-1.30); GLUCOSE 206 mg/dL (70-99); POTASSIUM 4.9 mmol/L (3.5-5.1)
[2021-11-03] MEDS: cefTRIAXone 1 GM in D5W 50 ML IV SCH (10:50)
[2021-11-03] MEDS: FLUCONAZOLE 100 mg/ NS 50 ML IV SCH (10:50)
[2021-11-03 12:04] LABS: HEMATOCRIT 22.8 % (36-54); MEAN CORPUSCULAR VOLUME 79 fL (79.0-98.0); PLATELET COUNT (AUTO) 176 K/uL (130-430); RED BLOOD CELL COUNT(AUTO) 2.89 MIL/uL (4.2-6.2); RED CELL DISTRIBUTION WIDTH 17.9 % (9.0-15.0); WHITE BLOOD COUNT (AUTO) 12.9 K/uL (4.8-10.8)
[2021-11-03 12:31] LABS: UREA NITROGEN, BLOOD 128 mg/dL (8-21)
[2021-11-03 14:59] LABS: BAND % (MANUAL) 22 % (0-6); BASOPHILS % (MANUAL) 0 % (0-2); EOSINOPHILS % (MANUAL) 0 % (0-7); LYMPHOCYTES % (MANUAL) 4 % (20-46); METAMYELOCYTES % 1 % (0-0); MONOCYTES % (MANUAL) 4 % (0-11)
[2021-11-03] MEDS ORDERED: ALBUMIN HUMAN 25% 100 ML IV ONE (15:00)
[2021-11-03] MEDS ORDERED: ALBUMIN HUMAN 25% 50 ML IV ONE (15:00)
[2021-11-04] VITALS (35 sets, daily range): BP systolic 106–139
[2021-11-04] MEDS: INSULIN LISPRO SLIDING SCALE 100 UNITS/ML, 3 ML VIAL (humaLOG) SUBCUT PRN ×2 (00:05→23:48)
[2021-11-04] MEDS: TAMSULOSIN HCL 0.4 MG CAP PO SCH (08:31)
[2021-11-04] MEDS: BISACODYL 5 MG TABLET.DR (DULCOLAX) PO SCH ×2 (08:31→20:03)
[2021-11-04] MEDS: cefTRIAXone 1 GM in D5W 50 ML IV SCH (09:40)
[2021-11-04] MEDS: FLUCONAZOLE 100 mg/ NS 50 ML IV SCH (10:12)
[2021-11-04] MEDS ORDERED: HEPARIN SODIUM,PORCINE 5,000 UNITS/ML VIAL ONE (14:54)
[2021-11-04] MEDS ORDERED: ALBUMIN HUMAN 25% 50 ML IV ONE ×2 (15:00)
[2021-11-04] MEDS ORDERED: ALBUMIN HUMAN 25% 100 ML IV ONE (15:04)
[2021-11-04] MEDS: D5NS 1,000 ML IV SCH (15:12)
[2021-11-05] VITALS (30 sets, daily range): BP systolic 102–140
[2021-11-05 08:42] LABS: BASOPHILS % (AUTO) 0.2 % (0.0-2.0); EOSINOPHILS % (AUTO) 0.1 % (0.0-4.0); LYMPHOCYTES # (AUTO) 0.4 K/uL (1.0-5.5); LYMPHOCYTES % (AUTO) 4.7 % (20.5-51.5); MEAN CORPUSCULAR VOLUME 81 fL (79.0-98.0); MONOCYTES # (AUTO) 0.9 K/uL (0.0-1.0); MONOCYTES % (AUTO) 9.1 % (1.7-9.3); NEUTROPHILS # (AUTO) 8.1 K/uL (1.8-7.7); NEUTROPHILS % (AUTO) 85.9 % (40.0-70.0); PLATELET COUNT (AUTO) 198 K/uL (130-430); RED CELL DISTRIBUTION WIDTH 18.2 % (9.0-15.0); WHITE BLOOD COUNT (AUTO) 9.4 K/uL (4.8-10.8)
[2021-11-05 09:08] LABS: ANION GAP 6 (5-15); CALCIUM 11.7 mg/dL (8.4-11.0); CHLORIDE 100 mmol/L (98-107); CREATININE 4.05 mg/dL (0.55-1.30); GLUCOSE 152 mg/dL (70-99); POTASSIUM 4.6 mmol/L (3.5-5.1); UREA NITROGEN, BLOOD 79 mg/dL (8-21)
[2021-11-05 09:13] LABS: ALANINE AMINOTRANSFERASE 47 U/L (12-78); ALBUMIN 1.5 g/dL (3.4-4.8); ASPARTATE AMINOTRANSFERASE 103 U/L (10-37)
[2021-11-05 09:19] LABS: HEMATOCRIT 21.8 % (36-54)
[2021-11-05] MEDS: TAMSULOSIN HCL 0.4 MG CAP PO SCH (09:53)
[2021-11-05] MEDS: BISACODYL 5 MG TABLET.DR (DULCOLAX) PO SCH ×2 (09:53→20:30)
[2021-11-05] MEDS: cefTRIAXone 1 GM in D5W 50 ML IV SCH (09:55)
[2021-11-05] MEDS: FLUCONAZOLE 100 mg/ NS 50 ML IV SCH (11:31)
[2021-11-05] MEDS: D5NS 1,000 ML IV SCH (16:02)
[2021-11-05] MEDS: INSULIN LISPRO SLIDING SCALE 100 UNITS/ML, 3 ML VIAL (humaLOG) SUBCUT PRN (18:25)
[2021-11-06] VITALS (34 sets, daily range): BP systolic 84–141
[2021-11-06 07:27] LABS: BASOPHILS # (AUTO) 0.1 K/uL (0.0-0.2); BASOPHILS % (AUTO) 0.6 % (0.0-2.0); LYMPHOCYTES # (AUTO) 0.4 K/uL (1.0-5.5); LYMPHOCYTES % (AUTO) 4.4 % (20.5-51.5); MEAN CORPUSCULAR VOLUME 80 fL (79.0-98.0); MONOCYTES # (AUTO) 0.8 K/uL (0.0-1.0); MONOCYTES % (AUTO) 8.9 % (1.7-9.3); NEUTROPHILS # (AUTO) 7.4 K/uL (1.8-7.7); NEUTROPHILS % (AUTO) 86.1 % (40.0-70.0); PLATELET COUNT (AUTO) 189 K/uL (130-430); RED BLOOD CELL COUNT(AUTO) 2.35 MIL/uL (4.2-6.2); RED CELL DISTRIBUTION WIDTH 18.3 % (9.0-15.0); WHITE BLOOD COUNT (AUTO) 8.6 K/uL (4.8-10.8)
[2021-11-06 07:30] LABS: ANION GAP 8 (5-15); CALCIUM 12.2 mg/dL (8.4-11.0); CHLORIDE 100 mmol/L (98-107); CREATININE 5.05 mg/dL (0.55-1.30); GLUCOSE 136 mg/dL (70-99); POTASSIUM 5.1 mmol/L (3.5-5.1)
[2021-11-06 08:39] LABS: HEMATOCRIT 18.9 % (36-54)
[2021-11-06] MEDS: BISACODYL 5 MG TABLET.DR (DULCOLAX) PO SCH ×2 (09:00→21:51)
[2021-11-06] MEDS: TAMSULOSIN HCL 0.4 MG CAP PO SCH (09:00)
[2021-11-06 09:10] LABS: UREA NITROGEN, BLOOD 103 mg/dL (8-21)
[2021-11-06] MEDS: cefTRIAXone 1 GM in D5W 50 ML IV SCH ×2 (10:00→14:07)
[2021-11-06] MEDS ORDERED: ALBUMIN HUMAN 25% 100 ML IV ONE (11:30)
[2021-11-06] MEDS ORDERED: HEPARIN SODIUM,PORCINE 5,000 UNITS/ML VIAL MC ONE (11:45)
[2021-11-06] MEDS: FLUCONAZOLE 100 mg/ NS 50 ML IV SCH (14:55)
[2021-11-06] MEDS: D5NS 1,000 ML IV SCH (17:15)
[2021-11-07] VITALS (29 sets, daily range): BP systolic 92–133
[2021-11-07] MEDS: ALBUMIN HUMAN 25% 100 ML IV ONE ×2 (02:07→02:11)
[2021-11-07] MEDS ORDERED: ALBUMIN HUMAN 25% 100 ML IV ONE (02:10)
[2021-11-07] MEDS: ACETAMINOPHEN 325 MG TABLET PO PRN ×3 (03:57→17:06)
[2021-11-07] MEDS: INSULIN LISPRO SLIDING SCALE 100 UNITS/ML, 3 ML VIAL (humaLOG) SUBCUT PRN ×3 (05:26→16:56)
[2021-11-07 08:31] LABS: ANION GAP 10 (5-15); CALCIUM 10.6 mg/dL (8.4-11.0); CHLORIDE 100 mmol/L (98-107); GLUCOSE 179 mg/dL (70-99); POTASSIUM 4.8 mmol/L (3.5-5.1)
[2021-11-07] MEDS: cefTRIAXone 1 GM in D5W 50 ML IV SCH (09:58)
[2021-11-07] MEDS: TAMSULOSIN HCL 0.4 MG CAP PO SCH ×2 (10:00→13:29)
[2021-11-07] MEDS: BISACODYL 5 MG TABLET.DR (DULCOLAX) PO SCH ×2 (10:04→20:51)
[2021-11-07 10:08] LABS: UREA NITROGEN, BLOOD 120 mg/dL (8-21)
[2021-11-07] MEDS: FLUCONAZOLE 100 mg/ NS 50 ML IV SCH (11:36)
[2021-11-07 12:26] LABS: MEAN CORPUSCULAR VOLUME 82 fL (79.0-98.0); PLATELET COUNT (AUTO) 131 K/uL (130-430); RED CELL DISTRIBUTION WIDTH 17.3 % (9.0-15.0); WHITE BLOOD COUNT (AUTO) 7.1 K/uL (4.8-10.8)
[2021-11-07 13:43] LABS: HEMATOCRIT 12.7 % (36-54); RED BLOOD CELL COUNT(AUTO) 1.54 MIL/uL (4.2-6.2)
[2021-11-07] MEDS: D5NS 1,000 ML IV SCH (15:00)
[2021-11-07 17:47] LABS: BAND % (MANUAL) 22 % (0-6); BASOPHILS % (MANUAL) 0 % (0-2); EOSINOPHILS % (MANUAL) 0 % (0-7); LYMPHOCYTES % (MANUAL) 12 % (20-46); MONOCYTES % (MANUAL) 8 % (0-11)
[2021-11-08] VITALS (32 sets, daily range): BP systolic 117–147
[2021-11-08] MEDS ORDERED: SCOPOLAMINE HYDROBROMIDE 1 MG PATCH .72 H (TRANSDERM-SCOP) TD SCH (09:00)
[2021-11-08] MEDS: cefTRIAXone 1 GM in D5W 50 ML IV SCH (09:21)
[2021-11-08] MEDS: BISACODYL 5 MG TABLET.DR (DULCOLAX) PO SCH ×2 (09:22→21:52)
[2021-11-08] MEDS: D5NS 1,000 ML IV SCH (09:30)
[2021-11-08] MEDS: FLUCONAZOLE 100 mg/ NS 50 ML IV SCH (10:17)
[2021-11-08] MEDS ORDERED: iohexoL 350 mgI/mL, 100 ML INFUS..BTL IV ONE (11:21)
[2021-11-08 11:27] LABS: ANION GAP 17 (5-15); CALCIUM 10.5 mg/dL (8.4-11.0); CHLORIDE 98 mmol/L (98-107); CREATININE 5.45 mg/dL (0.55-1.30); GLUCOSE 175 mg/dL (70-99); POTASSIUM 5.5 mmol/L (3.5-5.1)
[2021-11-08] MEDS: INSULIN LISPRO SLIDING SCALE 100 UNITS/ML, 3 ML VIAL (humaLOG) SUBCUT PRN ×2 (12:30→18:50)
[2021-11-08 15:40] LABS: MEAN CORPUSCULAR VOLUME 86 fL (79.0-98.0); PLATELET COUNT (AUTO) 112 K/uL (130-430); RED BLOOD CELL COUNT(AUTO) 2.33 MIL/uL (4.2-6.2); RED CELL DISTRIBUTION WIDTH 15.7 % (9.0-15.0); RETICULOCYTE COUNT 3.2 % (0.5-1.5)
[2021-11-08 18:11] LABS: UREA NITROGEN, BLOOD 185 mg/dL (8-21)
[2021-11-08] MEDS: PANTOPRAZOLE SODIUM 40 MG/VIAL (PROTONIX) IVP SCH (18:58)
[2021-11-08 20:41] LABS: TOTAL IRON BIND. CAPACITY 74 ug/dL (250-450)
[2021-11-08 21:14] LABS: BAND % (MANUAL) 17 % (0-6); BASOPHILS % (MANUAL) 0 % (0-2); EOSINOPHILS % (MANUAL) 0 % (0-7); LYMPHOCYTES % (MANUAL) 8 % (20-46); METAMYELOCYTES % 2 % (0-0); MONOCYTES % (MANUAL) 12 % (0-11)
[2021-11-09] VITALS (31 sets, daily range): BP systolic 102–144
[2021-11-09] MEDS: INSULIN LISPRO SLIDING SCALE 100 UNITS/ML, 3 ML VIAL (humaLOG) SUBCUT PRN ×2 (00:59→05:58)
[2021-11-09] MEDS: IPRATROPIUM/ALBUTEROL SULFATE 3 ML AMPUL.NEB (DUONEB) INH SCH ×4 (01:17→19:40)
[2021-11-09 07:34] LABS: ANION GAP 16 (5-15); CALCIUM 10.1 mg/dL (8.4-11.0); CHLORIDE 96 mmol/L (98-107); CREATININE 5.81 mg/dL (0.55-1.30); GLUCOSE 213 mg/dL (70-99); POTASSIUM 5.7 mmol/L (3.5-5.1)
[2021-11-09 08:36] LABS: MEAN CORPUSCULAR VOLUME 84 fL (79.0-98.0); PLATELET COUNT (AUTO) 121 K/uL (130-430); RED BLOOD CELL COUNT(AUTO) 2.08 MIL/uL (4.2-6.2); RED CELL DISTRIBUTION WIDTH 16.2 % (9.0-15.0); WHITE BLOOD COUNT (AUTO) 6.3 K/uL (4.8-10.8)
[2021-11-09] MEDS: PANTOPRAZOLE SODIUM 40 MG/VIAL (PROTONIX) IVP SCH (09:00)
[2021-11-09] MEDS: BISACODYL 5 MG TABLET.DR (DULCOLAX) PO SCH ×2 (09:18→21:03)
[2021-11-09] MEDS: TAMSULOSIN HCL 0.4 MG CAP PO SCH (09:18)
[2021-11-09] MEDS: cefTRIAXone 1 GM in D5W 50 ML IV SCH (09:19)
[2021-11-09 09:44] LABS: HEMATOCRIT 17.4 % (36-54)
[2021-11-09 10:03] LABS: UREA NITROGEN, BLOOD 210 mg/dL (8-21)
[2021-11-09] MEDS: FLUCONAZOLE 100 mg/ NS 50 ML IV SCH (11:00)
[2021-11-09] MEDS ORDERED: CALCIUM CHLORIDE 1 GM in NS 100 ML IV ONE (14:30)
[2021-11-09] MEDS: D5NS 1,000 ML IV SCH (14:44)
[2021-11-09 14:51] LABS: ATYPICAL LYMPHOCYTES % 1 % (0-0); BAND % (MANUAL) 4 % (0-6); BASOPHILS % (MANUAL) 0 % (0-2); EOSINOPHILS % (MANUAL) 1 % (0-7); LYMPHOCYTES % (MANUAL) 13 % (20-46); MONOCYTES % (MANUAL) 8 % (0-11)
[2021-11-09 22:00] LABS: MEAN CORPUSCULAR VOLUME 84 fL (79.0-98.0); WHITE BLOOD COUNT (AUTO) 6.8 K/uL (4.8-10.8)
[2021-11-09 22:05] LABS: HEMATOCRIT 24.9 % (36-54); PLATELET COUNT (AUTO) 132 K/uL (130-430); RED BLOOD CELL COUNT(AUTO) 2.96 MIL/uL (4.2-6.2)
[2021-11-09 22:34] LABS: ATYPICAL LYMPHOCYTES % 1 % (0-0); BAND % (MANUAL) 4 % (0-6); BASOPHILS % (MANUAL) 0 % (0-2); EOSINOPHILS % (MANUAL) 0 % (0-7); LYMPHOCYTES % (MANUAL) 2 % (20-46); METAMYELOCYTES % 1 % (0-0); MONOCYTES % (MANUAL) 10 % (0-11)
[2021-11-10] VITALS (30 sets, daily range): BP systolic 108–152
[2021-11-10] MEDS: IPRATROPIUM/ALBUTEROL SULFATE 3 ML AMPUL.NEB (DUONEB) INH SCH ×3 (00:54→20:14)
[2021-11-10 06:35] LABS: BASOPHILS % (AUTO) 0.2 % (0.0-2.0); EOSINOPHILS % (AUTO) 0.2 % (0.0-4.0); HEMATOCRIT 22.4 % (36-54); LYMPHOCYTES # (AUTO) 0.5 K/uL (1.0-5.5); MEAN CORPUSCULAR VOLUME 84 fL (79.0-98.0); MONOCYTES # (AUTO) 0.6 K/uL (0.0-1.0); MONOCYTES % (AUTO) 9.3 % (1.7-9.3); NEUTROPHILS # (AUTO) 5.2 K/uL (1.8-7.7); NEUTROPHILS % (AUTO) 82.3 % (40.0-70.0); PLATELET COUNT (AUTO) 132 K/uL (130-430); RED BLOOD CELL COUNT(AUTO) 2.68 MIL/uL (4.2-6.2); RED CELL DISTRIBUTION WIDTH 15.6 % (9.0-15.0); WHITE BLOOD COUNT (AUTO) 6.4 K/uL (4.8-10.8)
[2021-11-10 07:07] LABS: ANION GAP 13 (5-15); CALCIUM 9.7 mg/dL (8.4-11.0); CHLORIDE 98 mmol/L (98-107); CREATININE 4.98 mg/dL (0.55-1.30); GLUCOSE 145 mg/dL (70-99); POTASSIUM 5.3 mmol/L (3.5-5.1)
[2021-11-10 08:12] LABS: INR 1.1 (0.80-1.20)
[2021-11-10 08:19] LABS: UREA NITROGEN, BLOOD 149 mg/dL (8-21)
[2021-11-10] MEDS: BISACODYL 5 MG TABLET.DR (DULCOLAX) PO SCH ×2 (09:00→20:36)
[2021-11-10] MEDS: TAMSULOSIN HCL 0.4 MG CAP PO SCH (09:00)
[2021-11-10] MEDS: PANTOPRAZOLE SODIUM 40 MG/VIAL (PROTONIX) IVP SCH (10:46)
[2021-11-10] MEDS ORDERED: FOLIC ACID 1 MG TABLET NG ONE (19:00)
[2021-11-10] MEDS ORDERED: EPOETIN ALFA 4,000 UNITS/ML VIAL SUBCUT ONE (19:45)
[2021-11-11] VITALS (20 sets, daily range): BP systolic 122–147
[2021-11-11] MEDS: IPRATROPIUM/ALBUTEROL SULFATE 3 ML AMPUL.NEB (DUONEB) INH SCH ×3 (03:07→13:26)
[2021-11-11 07:49] LABS: BASOPHILS % (AUTO) 0.3 % (0.0-2.0); EOSINOPHILS % (AUTO) 0.1 % (0.0-4.0); HEMATOCRIT 29.9 % (36-54); LYMPHOCYTES # (AUTO) 0.4 K/uL (1.0-5.5); LYMPHOCYTES % (AUTO) 7.7 % (20.5-51.5); MEAN CORPUSCULAR VOLUME 85 fL (79.0-98.0); MONOCYTES # (AUTO) 0.7 K/uL (0.0-1.0); MONOCYTES % (AUTO) 13.9 % (1.7-9.3); PLATELET COUNT (AUTO) 121 K/uL (130-430); RED BLOOD CELL COUNT(AUTO) 3.52 MIL/uL (4.2-6.2); RED CELL DISTRIBUTION WIDTH 16.3 % (9.0-15.0); WHITE BLOOD COUNT (AUTO) 5.1 K/uL (4.8-10.8)
[2021-11-11 08:37] LABS: ANION GAP 13 (5-15); CALCIUM 8.9 mg/dL (8.4-11.0); CHLORIDE 99 mmol/L (98-107); CREATININE 4.13 mg/dL (0.55-1.30); GLUCOSE 109 mg/dL (70-99); POTASSIUM 4.8 mmol/L (3.5-5.1)
[2021-11-11] MEDS ORDERED: FOLIC ACID 1 MG TABLET NG SCH (09:00)
[2021-11-11 09:38] LABS: UREA NITROGEN, BLOOD 104 mg/dL (8-21)
[2021-11-11] MEDS: PANTOPRAZOLE SODIUM 40 MG/VIAL (PROTONIX) IVP SCH (09:52)
[2021-11-11] MEDS: BISACODYL 5 MG TABLET.DR (DULCOLAX) PO SCH ×2 (09:53→20:39)
[2021-11-11] MEDS: TAMSULOSIN HCL 0.4 MG CAP PO SCH (09:53)
[2021-11-11] MEDS ORDERED: MIDAZOLAM IN NACL,ISO-OSMOT/PF 100 ML IV PRN (10:30)
[2021-11-11] MEDS ORDERED: MORPHINE SULFATE IN 0.9 % NACL 100 ML IV PRN (10:30)
[2021-11-12] MEDS ORDERED: EPOETIN ALFA 4,000 UNITS/ML VIAL SUBCUT SCH (17:00)
== END 2021-11-11 22:54 | DRG 870 ==
LOC: SED 13:05 → STU 17:42 → SIC 10-24 20:00 → SMU 11-11 22:54
PROVIDERS: ADMIT Family Medicine; ATTEND Family Medicine
PROC: 5A09357 Assistance with Respiratory Ventilation, Less than 24 Consecutive Hours, Continuous Positive Airway Pressure (ICD-10-PCS; 2021-10-22)
PROC: 0T9B70Z Drainage of Bladder with Drainage Device, Via Natural or Artificial Opening (ICD-10-PCS; 2021-10-22)
PROC: 5A09357 Assistance with Respiratory Ventilation, Less than 24 Consecutive Hours, Continuous Positive Airway Pressure (ICD-10-PCS; 2021-10-24)
PROC: 02HV33Z Insertion of Infusion Device into Superior Vena Cava, Percutaneous Approach (ICD-10-PCS; principal; 2021-10-25)
PROC: B548ZZA Ultrasonography of Superior Vena Cava, Guidance (ICD-10-PCS; 2021-10-25)
PROC: 5A1D70Z Performance of Urinary Filtration, Intermittent, Less than 6 Hours Per Day (ICD-10-PCS; 2021-10-26)
PROC: 5A1955Z Respiratory Ventilation, Greater than 96 Consecutive Hours (ICD-10-PCS; 2021-10-27)
PROC: 0BH17EZ Insertion of Endotracheal Airway into Trachea, Via Natural or Artificial Opening (ICD-10-PCS; 2021-10-27)
PROC: 5A1D70Z Performance of Urinary Filtration, Intermittent, Less than 6 Hours Per Day (ICD-10-PCS; 2021-10-28)
PROC: 5A1D70Z Performance of Urinary Filtration, Intermittent, Less than 6 Hours Per Day (ICD-10-PCS; 2021-10-29)
PROC: 5A1D70Z Performance of Urinary Filtration, Intermittent, Less than 6 Hours Per Day (ICD-10-PCS; 2021-10-31)
PROC: 5A1D70Z Performance of Urinary Filtration, Intermittent, Less than 6 Hours Per Day (ICD-10-PCS; 2021-11-03)
PROC: 5A1D70Z Performance of Urinary Filtration, Intermittent, Less than 6 Hours Per Day (ICD-10-PCS; 2021-11-04)
PROC: 5A1D70Z Performance of Urinary Filtration, Intermittent, Less than 6 Hours Per Day (ICD-10-PCS; 2021-11-06)
PROC: 30233N1 Transfusion of Nonautologous Red Blood Cells into Peripheral Vein, Percutaneous Approach (ICD-10-PCS; 2021-11-07)
PROC: 5A1D70Z Performance of Urinary Filtration, Intermittent, Less than 6 Hours Per Day (ICD-10-PCS; 2021-11-08)
PROC: 5A1D70Z Performance of Urinary Filtration, Intermittent, Less than 6 Hours Per Day (ICD-10-PCS; 2021-11-10)
PROC: 5A1D70Z Performance of Urinary Filtration, Intermittent, Less than 6 Hours Per Day (ICD-10-PCS; 2021-11-11)
DX: A41.9 Sepsis, unspecified organism (principal); E43 Unspecified severe protein-calorie malnutrition; G93.41 Metabolic encephalopathy; N17.0 Acute kidney failure with tubular necrosis; J96.01 Acute respiratory failure with hypoxia; I21.A1 Myocardial infarction type 2; R65.21 Severe sepsis with septic shock; J69.0 Pneumonitis due to inhalation of food and vomit; N39.0 Urinary tract infection, site not specified; M62.82 Rhabdomyolysis; E87.1 Hypo-osmolality and hyponatremia; E87.0 Hyperosmolality and hypernatremia; Z68.1 Body mass index [BMI] 19.9 or less, adult; E86.0 Dehydration; R13.10 Dysphagia, unspecified; D69.6 Thrombocytopenia, unspecified; I12.9 Hypertensive chronic kidney disease with stage 1 through stage 4 chronic kidney disease, or unspecified chronic kidney disease; E11.22 Type 2 diabetes mellitus with diabetic chronic kidney disease; N18.9 Chronic kidney disease, unspecified; E87.70 Fluid overload, unspecified; Z20.822 Contact with and (suspected) exposure to COVID-19; C61 Malignant neoplasm of prostate; Z66 Do not resuscitate; E87.8 Other disorders of electrolyte and fluid balance, not elsewhere classified; D64.9 Anemia, unspecified; Z88.0 Allergy status to penicillin; Z85.46 Personal history of malignant neoplasm of prostate; Z79.899 Other long term (current) drug therapy; L89.159 Pressure ulcer of sacral region, unspecified stage
CPT/HCPCS: 36415; 36600; 70450-TC; 71045; 72125-TC; 76376; 76700-TC; 76770; 80048; 80053; 80061; 81000; 82140; 82550; 82553; 82607; 82746; 82803-TC; 82962; 83540; 83550; 83605; 83735; 83880; 84238; 84443; 84484; 85007; 85025; 85027; 85044; 85384; 85610-TC; 85730-TC; 86376; 86480; 86803; 86886; 86900; 86901; 86920; 87040; 87070-TC; 87081; 87086; 87205-TC; 87340; 90935; 90937; 92610-GN; 93005; 93306; 94002; 94003; 94640; 94660; 94760; 96365; 96367; 99291; C9113; G0378; J0692; J0696; J0885; J1450; J1644; J1956; J2060; J2270; J2543; J2704; J3370; J3490; J7050; J7060; P9021; P9046; Q9967